=== PATIENT | female | born 1945 | race Caucasian/White ===

== ENCOUNTER → 2018-11-27 | Outpatient (CLI) | payer MEDICARE, OTHER ==
[~2018-11-27] MED LIST: ALBU8.5H2 IH; ATOR20TA66 PO; ATOR40TA PO; CHOL200018 PO; CRAN1CAP5 PO; DILT240C PO; FENO160T8 PO; HYDR25TA4 PO; LVT.1T PO; METF-380 PO; METO-451 PO; METO100T2 PO; METO25TA6 PO; PIOG30TA27 PO; VITA150T PO; [UNRECOGNIZED DRUG - CODE] PO
[2018-11-27 17:31] LABS: ABSOLUTE RETIC # 71 10e9/L (24-90); RED BLOOD COUNT 5.34 10^6/uL (4.35-5.85); RETICULOCYTE % 1.33 % (0.50-2.40)
[2018-11-27 17:49] LABS: ANISOCYTOSIS SLIGHT; BAND NEUTROPHILS 0 %; BASOPHILS % (MANUAL) 0 %; EOSINOPHILS % (MANUAL) 3 %; LYMPHOCYTES % (MANUAL) 16 %; MONOCYTES % (MANUAL) 11 %; NEUTROPHILS % (MANUAL) 70 %
== END ==
LOC: LABNPT 17:10
PROVIDERS: ATTEND Family Medicine
DX: D72.829 Elevated white blood cell count, unspecified (principal)
CPT/HCPCS: 85007; 85045

== ENCOUNTER → 2018-12-15 | Outpatient (CLI) | payer MEDICARE, OTHER ==
[2018-12-15 14:48] LABS: ABSOLUTE RETIC # 71 10e9/L (24-90); BASOPHILS # (AUTO) 0.1 10^3/uL (0.0-0.1); BASOPHILS % (AUTO) 0 % (0-10); EOSINOPHILS # (AUTO) 0.4 10^3/uL (0.0-0.3); EOSINOPHILS % (AUTO) 2 % (0-10); HEMATOCRIT 42 % (35-52); HEMOGLOBIN 13.1 G/DL (11.5-16.0); LYMPHOCYTES % (AUTO) 13 % (12-44); MEAN CORPUSCULAR HEMOGLOBIN 26 PG (25-34); MEAN CORPUSCULAR HGB CONC 31 G/DL (32-36); MEAN CORPUSCULAR VOLUME 82 FL (80-99); MEAN PLATELET VOLUME 9.7 FL (7.4-10.4); MONOCYTES # (AUTO) 1.2 X 10^3 (0.0-1.0); MONOCYTES % (AUTO) 8 % (0-12); NEUTROPHILS % (AUTO) 76 % (42-75); PLATELET COUNT 737 10^3/uL (130-400); RED CELL DISTRIBUTION WIDTH 18.3 % (10.0-14.5); RETICULOCYTE % 1.39 % (0.50-2.40); WHITE BLOOD COUNT 15.7 10^3/uL (4.3-11.0)
[2018-12-15 14:55] LABS: BAND NEUTROPHILS 2 %; LYMPHOCYTES % (MANUAL) 17 %; NEUTROPHILS % (MANUAL) 76 %
[2018-12-15 14:56] LABS: ANISOCYTOSIS SLIGHT; BASOPHILS % (MANUAL) 0 %; EOSINOPHILS % (MANUAL) 1 %; MONOCYTES % (MANUAL) 4 %
== END ==
LOC: LABNPT 14:37
PROVIDERS: ATTEND Internal Medicine Hematology & Oncology
DX: D72.829 Elevated white blood cell count, unspecified (principal)
CPT/HCPCS: 81206; 81270; 85007; 85027; 85045; 88184; 88185

== ENCOUNTER 2019-01-08 14:52 | Outpatient (RCR) | payer MEDICARE, OTHER | END 2019-03-10 | disposition home or self-care (01) | LOC: ONC 14:52 | PROVIDERS: ATTEND Internal Medicine Hematology & Oncology | DX: D72.829 Elevated white blood cell count, unspecified (principal) | CPT/HCPCS: 99213; 99214 ==

== ENCOUNTER 2019-01-28 08:43 | Outpatient (CLI) | payer MEDICARE, OTHER ==
[~2019-01-28] VITALS: Ht 162.6 cm; Wt 60.9 kg
[2019-01-28] VITALS (12 sets, daily range): BP systolic 113–157; BP diastolic 58–86
[2019-01-28 09:22] LABS: HEMOGLOBIN 12.3 G/DL (11.5-16.0); MEAN PLATELET VOLUME 9.1 FL (7.4-10.4); RED CELL DISTRIBUTION WIDTH 18.4 % (10.0-14.5); WHITE BLOOD COUNT 15.7 10^3/uL (4.3-11.0)
[2019-01-28] MEDS ORDERED: NS IV 1000 ML 1,000 ML IV STA (09:32)
[2019-01-28 09:34] LABS: PROTHROMBIN TIME PATIENT 12.6 SEC (12.2-14.7)
[2019-01-28] MEDS ORDERED: LIDOCAINE 1% INJ 20 ML 20 ML VIAL INJ ONE (09:45)
[2019-01-28] MEDS ORDERED: fentaNYL INJECTION 100 MCG/2 ML AMP IVP ONE (09:45)
[2019-01-28] MEDS ORDERED: MIDAZOLAM 2 MG/2 ML (VERSED) VIAL IVP ONE (09:45)
--- NOTE | 2019-01-28 10:52 | Pre-Op Note & Conscious Sedat ---
Pre-Operative Progress Note H&P Reviewed The H&P was reviewed, patient examined and no changes noted. Date H&P Reviewed: Jan 28, 2019 Time H&P Reviewed: 10:00 Pre-Op Diagnosis: Lung mass Conscious Sedation Pre-Proced Time 10:00 ASA Score 2 For ASA 3 and 4: Consider anesthesia and medical clearance. Also, for patients with a history of failed moderate sedation consider anesthesia. Airway Lungs Heart ASA score ASA 1: a normal healthy patient ASA 2: a patient with a mild systemic disease (mid diabetes, controlled hypertension, obesity ASA 3: a patient with a severe systemic disease that limits activity (angina , COPD, prior Myocardial infarction) ASA 4: a patient with an incapacitating disease that is a constant threat to life (CHF, renal failure) ASA 5: a moribund patient not expected to survive 24 hrs. (ruptured aneurysm) ASA 6: a declared brain- patient whose organs are being harvested. For emergent operations, add the letter E after the classification Mallampati Classification Grade 2 Sedation Plan Analgesia, Amnesia, Plan communicated to team members, Discussed options with patient/fam, Discussed risks with patient/fam The patient is an appropriate candidate to undergo the planned procedure, sedation, and anesthesia. The patient immediately re-assessed prior to indication. NILAM RAZA MD Jan 28, 2019 10:52
[2019-01-28] MEDS ORDERED: HYDROcodone/APAP 5 MG/325 MG (LORTAB) TAB PO PRN (11:00)
--- NOTE | 2019-01-28 11:46 | Diagnostic Imaging Report ---
INDICATION: Left lower lobe mass. TECHNIQUE: Patient was brought to the CT suite and placed on the table in the right side down decubitus position. The axial imaging through the chest and upper abdomen was performed to evaluate appropriate entry site. Procedure was performed utilizing conscious sedation with radiology nursing and constipation monitoring. Patient was administered a total of 50 mcg of fentanyl and 0.5 mg of Versed intravenously. Total procedure time was approximately six minutes. The right posterior lower chest was prepped and draped in usual sterile fashion. Small amount of 1% lidocaine was utilized for local anesthesia. An 18-gauge coaxial Temno needle was advanced into the large lobulated mass at the left base. A total of four core biopsies were obtained. Small blood patch was injected during needle removal. Hemostasis was obtained using manual compression. Followup imaging shows no complicating features. Patient tolerated the procedure well. IMPRESSION: Successful CT-guided core biopsy of the large mass at the left lung base/upper abdomen, utilizing conscious sedation. The patient tolerated the procedure well. Pathology results are currently pending. Dictated by: Dictated on workstation # [id number]
--- NOTE | 2019-01-28 12:53 | Diagnostic Imaging Report ---
Indication: Left basilar mass, status post biopsy Expiratory radiograph is without evidence of pneumothorax. Pleural fluid in the left base is noted. Right lung is clear. Impression: No evidence of pneumothorax, status post biopsy. Dictated by: Dictated on workstation # [id number]
== END 2019-01-28 15:10 | disposition home or self-care (01) ==
LOC: SDC 08:43
PROVIDERS: ATTEND Family Medicine
DX: J84.10 Pulmonary fibrosis, unspecified (principal); I47.1 Supraventricular tachycardia; E11.9 Type 2 diabetes mellitus without complications; I10 Essential (primary) hypertension; E78.5 Hyperlipidemia, unspecified; J45.909 Unspecified asthma, uncomplicated; E03.9 Hypothyroidism, unspecified; Z79.02 Long term (current) use of antithrombotics/antiplatelets; Z79.82 Long term (current) use of aspirin; Z79.899 Other long term (current) drug therapy; Z79.84 Long term (current) use of oral hypoglycemic drugs
CPT/HCPCS: 36415; 36430; 71045; 77012; 85027; 85610; 85730; 99156

== ENCOUNTER 2019-06-24 13:18 | Outpatient (RCR) | payer MEDICARE, OTHER ==
[2019-04-09 15:32] LABS: BASOPHILS # (AUTO) 0.1 10^3/uL (0.0-0.1); BASOPHILS % (AUTO) 1 % (0-10); EOSINOPHILS # (AUTO) 0.5 10^3/uL (0.0-0.3); EOSINOPHILS % (AUTO) 4 % (0-10); HEMATOCRIT 36 % (35-52); HEMOGLOBIN 11.5 G/DL (11.5-16.0); LYMPHOCYTES # (AUTO) 2.2 X 10^3 (1.0-4.0); LYMPHOCYTES % (AUTO) 16 % (12-44); MEAN CORPUSCULAR HEMOGLOBIN 24 PG (25-34); MEAN CORPUSCULAR HGB CONC 32 G/DL (32-36); MEAN CORPUSCULAR VOLUME 75 FL (80-99); MEAN PLATELET VOLUME 8.9 FL (7.4-10.4); MONOCYTES # (AUTO) 1.6 X 10^3 (0.0-1.0); MONOCYTES % (AUTO) 12 % (0-12); NEUTROPHILS # (AUTO) 9.4 X 10^3 (1.8-7.8); NEUTROPHILS % (AUTO) 68 % (42-75); PLATELET COUNT 799 10^3/uL (130-400); RED CELL DISTRIBUTION WIDTH 19.6 % (10.0-14.5); WHITE BLOOD COUNT 13.8 10^3/uL (4.3-11.0)
[2019-05-13 13:40] LABS: BASOPHILS % (AUTO) 0 % (0-10); EOSINOPHILS % (AUTO) 0 % (0-10); HEMATOCRIT 34 % (35-52); HEMOGLOBIN 10.6 G/DL (11.5-16.0); LYMPHOCYTES # (AUTO) 0.9 X 10^3 (1.0-4.0); LYMPHOCYTES % (AUTO) 3 % (12-44); MEAN CORPUSCULAR HEMOGLOBIN 24 PG (25-34); MEAN CORPUSCULAR HGB CONC 31 G/DL (32-36); MEAN CORPUSCULAR VOLUME 76 FL (80-99); MONOCYTES # (AUTO) 1.1 X 10^3 (0.0-1.0); MONOCYTES % (AUTO) 4 % (0-12); NEUTROPHILS # (AUTO) 24.7 X 10^3 (1.8-7.8); NEUTROPHILS % (AUTO) 92 % (42-75); PLATELET COUNT 836 10^3/uL (130-400); RED CELL DISTRIBUTION WIDTH 19.5 % (10.0-14.5); WHITE BLOOD COUNT 26.8 10^3/uL (4.3-11.0)
[2019-05-13 14:01] LABS: ALANINE AMINOTRANSFERASE 32 U/L (0-55); ALBUMIN 3.4 GM/DL (3.2-4.5); ALKALINE PHOSPHATASE 126 U/L (40-136); BILIRUBIN,TOTAL 0.2 MG/DL (0.1-1.0); BUN/CREATININE RATIO 20; CALCIUM 9.5 MG/DL (8.5-10.1); CARBON DIOXIDE 18 MMOL/L (21-32); CHLORIDE 97 MMOL/L (98-107); CREATININE SERUM 0.74 MG/DL (0.60-1.30); GFR ESTIMATED > 60; GLUCOSE 292 MG/DL (70-105); MAGNESIUM 1.2 MG/DL (1.8-2.4); POTASSIUM 4.4 MMOL/L (3.6-5.0); SODIUM 133 MMOL/L (135-145); TOTAL PROTEIN 7.2 GM/DL (6.4-8.2)
[~2019-06-24] VITALS: Ht 162.6 cm; Wt 57.6 kg
[~2019-06-24 13:18] MED LIST changes: +BEVACIZUMAB IV SCH; +CYANOCOBALAMIN INJ 1000 MCG/ML (CANCER CENTER) ONE; +FOSAPREPITANT DIMEGLUMINE 150 MG in NS (IVPB) CANCER CENTER ONLY 150 ML IV SCH; +NS IV 1000 ML (CANCER CTR) IV SCH; +PALONOSETRON HCL 0.25 MG, DEXAMETHASONE INJECTION 10 MG in NS (IVPB) CANCER CENTER 50 ML IV SCH; +PEMETREXED DISODIUM IV SCH; +[UNRECOGNIZED DRUG - OTHER] IV SCH; +[UNRECOGNIZED DRUG - OTHER] IV SCH
[2019-06-24] MEDS ORDERED: CYANOCOBALAMIN INJ 1000 MCG/ML (CANCER CENTER) ONE (14:58)
== END 2019-07-08 | disposition home or self-care (01) ==
LOC: ONC 13:18
PROVIDERS: ATTEND Internal Medicine Hematology & Oncology
DX: C45.1 Mesothelioma of peritoneum (principal); D72.829 Elevated white blood cell count, unspecified; D47.3 Essential (hemorrhagic) thrombocythemia; I25.10 Atherosclerotic heart disease of native coronary artery without angina pectoris; E11.9 Type 2 diabetes mellitus without complications; I10 Essential (primary) hypertension; E78.5 Hyperlipidemia, unspecified; J44.9 Chronic obstructive pulmonary disease, unspecified; F17.210 Nicotine dependence, cigarettes, uncomplicated; Z79.82 Long term (current) use of aspirin; Z79.899 Other long term (current) drug therapy; Z79.84 Long term (current) use of oral hypoglycemic drugs
CPT/HCPCS: 36415; 80053; 83735; 85025; 96367; 96372; 96375; 96411; 96413; 96417; 99213

== ENCOUNTER 2019-10-07 14:00 | Outpatient (RCR) | payer MEDICARE, OTHER ==
[~2019-10-07] VITALS: Ht 162.6 cm; Wt 57.2 kg
[~2019-10-07 14:00] MED LIST changes: +ONDANSETRON MDV (CANCER CENTER 8 MG, DEXAMETHASONE INJ (CANCER CTR) 4 MG in NS (IVPB) C... IV ONE; +ONDANSETRON MDV (CANCER CENTER 8 MG, DEXAMETHASONE INJECTION 10 MG in NS (IVPB) CANCER ... IV SCH; +diphenhydrAMINE 50 MG/ML INJ (CANCER CENTER) ONE; +methylPREDNISolone 125 MG/2 ML (SOLU-MEDROL) CANCER CTR ONE
[2019-10-07] MEDS ORDERED: NS IV 500 ML (CANCER CENTER) 500 ML ONE (15:38)
== END 2019-10-13 | disposition home or self-care (01) ==
LOC: ONC 14:00
PROVIDERS: ATTEND Internal Medicine Hematology & Oncology
DX: Z51.11 Encounter for antineoplastic chemotherapy (principal); C45.1 Mesothelioma of peritoneum; D72.829 Elevated white blood cell count, unspecified; D47.3 Essential (hemorrhagic) thrombocythemia; I25.10 Atherosclerotic heart disease of native coronary artery without angina pectoris; E11.9 Type 2 diabetes mellitus without complications; I10 Essential (primary) hypertension; E78.5 Hyperlipidemia, unspecified; J44.9 Chronic obstructive pulmonary disease, unspecified; F17.210 Nicotine dependence, cigarettes, uncomplicated; Z79.82 Long term (current) use of aspirin; Z79.899 Other long term (current) drug therapy; Z79.84 Long term (current) use of oral hypoglycemic drugs
CPT/HCPCS: 36591; 82728; 83540; 96367; 96372; 96375; 96411; 96413; 96417

== ENCOUNTER 2020-01-20 13:58 | Outpatient (RCR) | payer MEDICARE, OTHER ==
[~2020-01-20 13:58] MED LIST changes: -CYANOCOBALAMIN INJ 1000 MCG/ML (CANCER CENTER) ONE; -FOSAPREPITANT DIMEGLUMINE 150 MG in NS (IVPB) CANCER CENTER ONLY 150 ML IV SCH; +NS IV 500 ML (CANCER CENTER) 500 ML IV SCH; +NS IV 500 ML (CANCER CENTER) 500 ML ONE; +NS IV SCH; -ONDANSETRON MDV (CANCER CENTER 8 MG, DEXAMETHASONE INJ (CANCER CTR) 4 MG in NS (IVPB) C... IV ONE; -ONDANSETRON MDV (CANCER CENTER 8 MG, DEXAMETHASONE INJECTION 10 MG in NS (IVPB) CANCER ... IV SCH; -PALONOSETRON HCL 0.25 MG, DEXAMETHASONE INJECTION 10 MG in NS (IVPB) CANCER CENTER 50 ML IV SCH; +PALONOSETRON HCL 0.25 MG/5 ML IV SCH; +PALONOSETRON HCL IV SCH; +PEMBROLIZUMAB 200 MG in NS (IVPB) CANCER CENTER 50 ML IV SCH; -PEMETREXED DISODIUM IV SCH; -[UNRECOGNIZED DRUG - OTHER] IV SCH; -diphenhydrAMINE 50 MG/ML INJ (CANCER CENTER) ONE; -methylPREDNISolone 125 MG/2 ML (SOLU-MEDROL) CANCER CTR ONE
[2020-01-20 14:31] LABS: BASOPHILS # (AUTO) 0.1 10^3/uL (0.0-0.1); BASOPHILS % (AUTO) 1 % (0-10); EOSINOPHILS # (AUTO) 2.1 10^3/uL (0.0-0.3); EOSINOPHILS % (AUTO) 13 % (0-10); HEMATOCRIT 39 % (35-52); HEMOGLOBIN 11.9 G/DL (11.5-16.0); LYMPHOCYTES # (AUTO) 2.8 X 10^3 (1.0-4.0); LYMPHOCYTES % (AUTO) 17 % (12-44); MEAN CORPUSCULAR HEMOGLOBIN 27 PG (25-34); MEAN CORPUSCULAR HGB CONC 31 G/DL (32-36); MEAN CORPUSCULAR VOLUME 88 FL (80-99); MEAN PLATELET VOLUME 8.7 FL (7.4-10.4); MONOCYTES # (AUTO) 1.7 X 10^3 (0.0-1.0); MONOCYTES % (AUTO) 10 % (0-12); NEUTROPHILS # (AUTO) 9.9 X 10^3 (1.8-7.8); NEUTROPHILS % (AUTO) 60 % (42-75); PLATELET COUNT 563 10^3/uL (130-400); RED CELL DISTRIBUTION WIDTH 16.5 % (10.0-14.5); WHITE BLOOD COUNT 16.6 10^3/uL (4.3-11.0)
[2020-01-20 14:53] LABS: ALANINE AMINOTRANSFERASE 10 U/L (0-55); ALBUMIN 3.5 GM/DL (3.2-4.5); ALKALINE PHOSPHATASE 119 U/L (40-136); BILIRUBIN,TOTAL 0.2 MG/DL (0.1-1.0); BUN/CREATININE RATIO 16; CALCIUM 9.7 MG/DL (8.5-10.1); CARBON DIOXIDE 23 MMOL/L (21-32); CHLORIDE 102 MMOL/L (98-107); CREATININE SERUM 0.87 MG/DL (0.60-1.30); GFR ESTIMATED > 60; GLUCOSE 95 MG/DL (70-105); POTASSIUM 5.1 MMOL/L (3.6-5.0); SODIUM 135 MMOL/L (135-145); TOTAL PROTEIN 7.3 GM/DL (6.4-8.2)
== END 2020-01-26 | disposition home or self-care (01) ==
LOC: ONC 13:58
PROVIDERS: ATTEND Internal Medicine Hematology & Oncology
DX: Z51.11 Encounter for antineoplastic chemotherapy (principal); C45.1 Mesothelioma of peritoneum; D72.829 Elevated white blood cell count, unspecified; D47.3 Essential (hemorrhagic) thrombocythemia; I25.10 Atherosclerotic heart disease of native coronary artery without angina pectoris; E11.9 Type 2 diabetes mellitus without complications; I10 Essential (primary) hypertension; E78.5 Hyperlipidemia, unspecified; J44.9 Chronic obstructive pulmonary disease, unspecified; F17.210 Nicotine dependence, cigarettes, uncomplicated; Z79.82 Long term (current) use of aspirin; Z79.899 Other long term (current) drug therapy; Z79.84 Long term (current) use of oral hypoglycemic drugs
CPT/HCPCS: 36591; 80053; 85025; 96375; 96413; 99213

== ENCOUNTER 2020-02-10 13:12 | Outpatient (RCR) | payer MEDICARE, OTHER ==
[~2020-02-10 13:12] MED LIST changes: -BEVACIZUMAB IV SCH; -NS IV 1000 ML (CANCER CTR) IV SCH; -NS IV 500 ML (CANCER CENTER) 500 ML ONE; -NS IV SCH; -PALONOSETRON HCL 0.25 MG/5 ML IV SCH; -PALONOSETRON HCL IV SCH; -[UNRECOGNIZED DRUG - OTHER] IV SCH
== END 2020-03-02 09:17 | disposition home or self-care (01) ==
LOC: ONC 13:12
PROVIDERS: ATTEND Internal Medicine Hematology & Oncology
DX: Z51.11 Encounter for antineoplastic chemotherapy (principal); C45.1 Mesothelioma of peritoneum; D72.829 Elevated white blood cell count, unspecified; D47.3 Essential (hemorrhagic) thrombocythemia; I25.10 Atherosclerotic heart disease of native coronary artery without angina pectoris; E11.9 Type 2 diabetes mellitus without complications; I10 Essential (primary) hypertension; E78.5 Hyperlipidemia, unspecified; J44.9 Chronic obstructive pulmonary disease, unspecified; F17.210 Nicotine dependence, cigarettes, uncomplicated; I65.23 Occlusion and stenosis of bilateral carotid arteries; I47.1 Supraventricular tachycardia; E78.00 Pure hypercholesterolemia, unspecified; K29.70 Gastritis, unspecified, without bleeding; Z95.5 Presence of coronary angioplasty implant and graft; Z90.49 Acquired absence of other specified parts of digestive tract; Z79.84 Long term (current) use of oral hypoglycemic drugs; Z79.82 Long term (current) use of aspirin; Z79.899 Other long term (current) drug therapy
CPT/HCPCS: 96413

== ENCOUNTER 2020-03-22 13:05 | Outpatient (RCR) | payer MEDICARE, OTHER | END 2020-04-12 13:38 | disposition home or self-care (01) | LOC: ONC 13:05 | PROVIDERS: ATTEND Internal Medicine Hematology & Oncology | DX: Z51.11 Encounter for antineoplastic chemotherapy (principal); C45.1 Mesothelioma of peritoneum; D72.829 Elevated white blood cell count, unspecified; D47.3 Essential (hemorrhagic) thrombocythemia; I25.10 Atherosclerotic heart disease of native coronary artery without angina pectoris; E11.9 Type 2 diabetes mellitus without complications; I10 Essential (primary) hypertension; E78.5 Hyperlipidemia, unspecified; J44.9 Chronic obstructive pulmonary disease, unspecified; F17.210 Nicotine dependence, cigarettes, uncomplicated; I65.23 Occlusion and stenosis of bilateral carotid arteries; I47.1 Supraventricular tachycardia; E78.00 Pure hypercholesterolemia, unspecified; K29.70 Gastritis, unspecified, without bleeding; Z95.5 Presence of coronary angioplasty implant and graft; Z90.49 Acquired absence of other specified parts of digestive tract; Z79.84 Long term (current) use of oral hypoglycemic drugs; Z79.82 Long term (current) use of aspirin; Z79.899 Other long term (current) drug therapy | CPT/HCPCS: 96413; 99213 ==

== ENCOUNTER 2020-07-06 02:30 | Outpatient (RCR) | payer MEDICARE, OTHER | END 2020-07-12 | disposition home or self-care (01) | LOC: ONC 02:30 | PROVIDERS: ATTEND Internal Medicine Hematology & Oncology | DX: Z51.11 Encounter for antineoplastic chemotherapy (principal); C45.1 Mesothelioma of peritoneum; D72.829 Elevated white blood cell count, unspecified; D47.3 Essential (hemorrhagic) thrombocythemia; I25.10 Atherosclerotic heart disease of native coronary artery without angina pectoris; E11.9 Type 2 diabetes mellitus without complications; I10 Essential (primary) hypertension; E78.5 Hyperlipidemia, unspecified; J44.9 Chronic obstructive pulmonary disease, unspecified; F17.210 Nicotine dependence, cigarettes, uncomplicated; I65.23 Occlusion and stenosis of bilateral carotid arteries; I47.1 Supraventricular tachycardia; E78.00 Pure hypercholesterolemia, unspecified; K29.70 Gastritis, unspecified, without bleeding; Z95.5 Presence of coronary angioplasty implant and graft; Z90.49 Acquired absence of other specified parts of digestive tract; Z79.84 Long term (current) use of oral hypoglycemic drugs; Z79.82 Long term (current) use of aspirin; Z79.899 Other long term (current) drug therapy | CPT/HCPCS: 96413; G0463; 36591; 84443 ==

== ENCOUNTER 2020-10-06 14:26 | Outpatient (RCR) | payer MEDICARE, OTHER | END 2020-10-12 | disposition home or self-care (01) | LOC: ONC 14:26 | PROVIDERS: ATTEND Internal Medicine Hematology & Oncology | DX: Z51.11 Encounter for antineoplastic chemotherapy (principal); C45.1 Mesothelioma of peritoneum; D72.829 Elevated white blood cell count, unspecified; D47.3 Essential (hemorrhagic) thrombocythemia; I25.10 Atherosclerotic heart disease of native coronary artery without angina pectoris; E11.9 Type 2 diabetes mellitus without complications; I10 Essential (primary) hypertension; E78.5 Hyperlipidemia, unspecified; J44.9 Chronic obstructive pulmonary disease, unspecified; I65.23 Occlusion and stenosis of bilateral carotid arteries; I47.1 Supraventricular tachycardia; E78.00 Pure hypercholesterolemia, unspecified; K29.70 Gastritis, unspecified, without bleeding; F17.210 Nicotine dependence, cigarettes, uncomplicated; Z95.5 Presence of coronary angioplasty implant and graft; Z90.49 Acquired absence of other specified parts of digestive tract; Z79.84 Long term (current) use of oral hypoglycemic drugs; Z79.82 Long term (current) use of aspirin; Z79.899 Other long term (current) drug therapy | CPT/HCPCS: 96413; G0463 ==

== ENCOUNTER 2020-10-26 13:28 | Outpatient (RCR) | payer MEDICARE, OTHER | END 2020-11-29 14:05 | disposition home or self-care (01) | LOC: ONC 13:28 | PROVIDERS: ATTEND Internal Medicine Hematology & Oncology | DX: Z51.11 Encounter for antineoplastic chemotherapy (principal); C45.1 Mesothelioma of peritoneum; D72.829 Elevated white blood cell count, unspecified; D47.3 Essential (hemorrhagic) thrombocythemia; I25.10 Atherosclerotic heart disease of native coronary artery without angina pectoris; E11.9 Type 2 diabetes mellitus without complications; I10 Essential (primary) hypertension; E78.5 Hyperlipidemia, unspecified; J44.9 Chronic obstructive pulmonary disease, unspecified; I65.23 Occlusion and stenosis of bilateral carotid arteries; I47.1 Supraventricular tachycardia; E78.00 Pure hypercholesterolemia, unspecified; K29.70 Gastritis, unspecified, without bleeding; F17.210 Nicotine dependence, cigarettes, uncomplicated; Z95.5 Presence of coronary angioplasty implant and graft; Z90.49 Acquired absence of other specified parts of digestive tract; Z79.84 Long term (current) use of oral hypoglycemic drugs; Z79.82 Long term (current) use of aspirin; Z79.899 Other long term (current) drug therapy | CPT/HCPCS: 96413 ==

== ENCOUNTER → 2020-11-13 | Outpatient (CLI) | payer OTHER, MEDICARE ==
[~2020-11-13] MED LIST changes: -NS IV 500 ML (CANCER CENTER) 500 ML IV SCH; -PEMBROLIZUMAB 200 MG in NS (IVPB) CANCER CENTER 50 ML IV SCH
== END ==
LOC: LABNPT 21:45
PROVIDERS: ATTEND Nurse Practitioner Family
DX: Z20.828 Contact with and (suspected) exposure to other viral communicable diseases (principal)
CPT/HCPCS: 87635

== ENCOUNTER 2021-01-23 12:47 | Outpatient (RCR) | payer MEDICARE, OTHER ==
[2020-12-21 14:11] LABS: BASOPHILS # (AUTO) 0.1 10^3/uL (0.0-0.1); BASOPHILS % (AUTO) 0 % (0-10); EOSINOPHILS # (AUTO) 1.5 10^3/uL (0.0-0.3); EOSINOPHILS % (AUTO) 5 % (0-10); HEMATOCRIT 28 % (35-52); HEMOGLOBIN 8.4 g/dL (11.5-16.0); LYMPHOCYTES # (AUTO) 2.7 10^3/uL (1.0-4.0); LYMPHOCYTES % (AUTO) 9 % (12-44); MEAN CORPUSCULAR HEMOGLOBIN 23 pg (25-34); MEAN CORPUSCULAR HGB CONC 30 g/dL (32-36); MEAN CORPUSCULAR VOLUME 77 fL (80-99); MEAN PLATELET VOLUME 8.5 fL (9.0-12.2); MONOCYTES # (AUTO) 2.3 10^3/uL (0.0-1.0); MONOCYTES % (AUTO) 7 % (0-12); NEUTROPHILS # (AUTO) 24.7 10^3/uL (1.8-7.8); NEUTROPHILS % (AUTO) 78 % (42-75); PLATELET COUNT 943 10^3/uL (130-400)
[2020-12-21 14:15] LABS: WHITE BLOOD COUNT 31.6 10^3/uL (4.3-11.0)
[2020-12-21 14:32] LABS: ALANINE AMINOTRANSFERASE 12 U/L (0-55); ALBUMIN 2.7 GM/DL (3.2-4.5); ALKALINE PHOSPHATASE 181 U/L (40-136); BILIRUBIN,TOTAL 0.2 MG/DL (0.1-1.0); BUN/CREATININE RATIO 21; CALCIUM 8.7 MG/DL (8.5-10.1); CARBON DIOXIDE 24 MMOL/L (21-32); CHLORIDE 97 MMOL/L (98-107); CREATININE SERUM 0.62 MG/DL (0.60-1.30); GFR ESTIMATED > 60; GLUCOSE 161 MG/DL (70-105); POTASSIUM 4.3 MMOL/L (3.6-5.0); SODIUM 134 MMOL/L (135-145); TOTAL PROTEIN 6.7 GM/DL (6.4-8.2)
[2020-12-29 13:49] LABS: BASOPHILS # (AUTO) 0.1 10^3/uL (0.0-0.1); BASOPHILS % (AUTO) 0 % (0-10); EOSINOPHILS # (AUTO) 0.7 10^3/uL (0.0-0.3); EOSINOPHILS % (AUTO) 2 % (0-10); HEMATOCRIT 30 % (35-52); HEMOGLOBIN 8.8 g/dL (11.5-16.0); LYMPHOCYTES # (AUTO) 2.2 10^3/uL (1.0-4.0); LYMPHOCYTES % (AUTO) 7 % (12-44); MEAN CORPUSCULAR HEMOGLOBIN 22 pg (25-34); MEAN CORPUSCULAR HGB CONC 29 g/dL (32-36); MEAN CORPUSCULAR VOLUME 75 fL (80-99); MEAN PLATELET VOLUME 8.3 fL (9.0-12.2); MONOCYTES % (AUTO) 6 % (0-12); NEUTROPHILS # (AUTO) 26.4 10^3/uL (1.8-7.8); NEUTROPHILS % (AUTO) 83 % (42-75); PLATELET COUNT 900 10^3/uL (130-400)
[2020-12-29 13:52] LABS: WHITE BLOOD COUNT 31.7 10^3/uL (4.3-11.0)
[2020-12-29 14:10] LABS: ALANINE AMINOTRANSFERASE 20 U/L (0-55); ALBUMIN 2.6 GM/DL (3.2-4.5); ALKALINE PHOSPHATASE 232 U/L (40-136); BILIRUBIN,TOTAL 0.2 MG/DL (0.1-1.0); BUN/CREATININE RATIO 16; CALCIUM 8.8 MG/DL (8.5-10.1); CARBON DIOXIDE 24 MMOL/L (21-32); CHLORIDE 98 MMOL/L (98-107); CREATININE SERUM 0.62 MG/DL (0.60-1.30); GFR ESTIMATED > 60; GLUCOSE 146 MG/DL (70-105); POTASSIUM 4.2 MMOL/L (3.6-5.0); SODIUM 133 MMOL/L (135-145); TOTAL PROTEIN 6.5 GM/DL (6.4-8.2)
[~2021-01-23 12:47] MED LIST changes: +IPILIMUMAB IV SCH; +NIVOLUMAB IV SCH; +NS IV 1000 ML (CANCER CTR) 1,000 ML IV SCH; +NS IV 500 ML (CANCER CENTER) 500 ML IV SCH; +NS IV SCH; +PEMBROLIZUMAB 200 MG in NS (IVPB) CANCER CENTER 50 ML IV SCH
[2021-01-23 13:25] LABS: BASOPHILS # (AUTO) 0.1 10^3/uL (0.0-0.1); BASOPHILS % (AUTO) 0 % (0-10); EOSINOPHILS # (AUTO) 0.2 10^3/uL (0.0-0.3); EOSINOPHILS % (AUTO) 1 % (0-10); HEMATOCRIT 29 % (35-52); HEMOGLOBIN 8.3 g/dL (11.5-16.0); LYMPHOCYTES # (AUTO) 2.4 10^3/uL (1.0-4.0); LYMPHOCYTES % (AUTO) 8 % (12-44); MEAN CORPUSCULAR HEMOGLOBIN 22 pg (25-34); MEAN CORPUSCULAR HGB CONC 29 g/dL (32-36); MEAN CORPUSCULAR VOLUME 76 fL (80-99); MEAN PLATELET VOLUME 8.8 fL (9.0-12.2); MONOCYTES # (AUTO) 1.8 10^3/uL (0.0-1.0); MONOCYTES % (AUTO) 6 % (0-12); NEUTROPHILS # (AUTO) 24.4 10^3/uL (1.8-7.8); NEUTROPHILS % (AUTO) 84 % (42-75); PLATELET COUNT 886 10^3/uL (130-400); WHITE BLOOD COUNT 29.2 10^3/uL (4.3-11.0)
[2021-01-23 13:50] LABS: ALANINE AMINOTRANSFERASE 14 U/L (0-55); ALBUMIN 2.3 GM/DL (3.2-4.5); ALKALINE PHOSPHATASE 218 U/L (40-136); BILIRUBIN,TOTAL 0.2 MG/DL (0.1-1.0); BUN/CREATININE RATIO 18; CALCIUM 7.7 MG/DL (8.5-10.1); CARBON DIOXIDE 28 MMOL/L (21-32); CHLORIDE 98 MMOL/L (98-107); CREATININE SERUM 0.74 MG/DL (0.60-1.30); GFR ESTIMATED > 60; GLUCOSE 197 MG/DL (70-105); POTASSIUM 3.4 MMOL/L (3.6-5.0); SODIUM 136 MMOL/L (135-145); TOTAL PROTEIN 5.9 GM/DL (6.4-8.2)
== END 2021-01-27 09:25 | disposition home or self-care (01) ==
LOC: ONC 12:47
PROVIDERS: ATTEND Internal Medicine Hematology & Oncology
DX: Z51.11 Encounter for antineoplastic chemotherapy (principal); C45.0 Mesothelioma of pleura; D72.829 Elevated white blood cell count, unspecified; D47.3 Essential (hemorrhagic) thrombocythemia; I25.10 Atherosclerotic heart disease of native coronary artery without angina pectoris; E11.9 Type 2 diabetes mellitus without complications; I10 Essential (primary) hypertension; E78.5 Hyperlipidemia, unspecified; J44.9 Chronic obstructive pulmonary disease, unspecified; I65.23 Occlusion and stenosis of bilateral carotid arteries; I47.1 Supraventricular tachycardia; E78.00 Pure hypercholesterolemia, unspecified; E03.9 Hypothyroidism, unspecified; K29.70 Gastritis, unspecified, without bleeding; F17.210 Nicotine dependence, cigarettes, uncomplicated; Z95.5 Presence of coronary angioplasty implant and graft; Z90.49 Acquired absence of other specified parts of digestive tract; Z79.84 Long term (current) use of oral hypoglycemic drugs; Z79.82 Long term (current) use of aspirin; Z79.899 Other long term (current) drug therapy
CPT/HCPCS: 36591; 80053; 82728; 83540; 84443; 85025; 96413; 96417; 99213

== ENCOUNTER 2021-01-27 09:56 | Outpatient (RCR) | payer MEDICARE, OTHER ==
[~2021-01-27 09:56] MED LIST changes: -IPILIMUMAB IV SCH; -NIVOLUMAB IV SCH; -NS IV 1000 ML (CANCER CTR) 1,000 ML IV SCH; -NS IV 500 ML (CANCER CENTER) 500 ML IV SCH; -NS IV SCH; -PEMBROLIZUMAB 200 MG in NS (IVPB) CANCER CENTER 50 ML IV SCH
[2021-01-27] MEDS ORDERED: FERRIC CARBOXYMALTOSE (CANCER) 750 MG in NS (IVPB) CANCER CENTER 250 ML IV SCH (11:15)
[2021-02-07] MEDS ORDERED: METO50TA7 PO (16:00)
[2021-02-07] MEDS ORDERED: DILT240C53 PO (16:00)
[2021-02-07] MEDS ORDERED: CLOP75TA28 PO (16:00)
[2021-02-07] MEDS ORDERED: VITA1CAP PO (16:00)
[2021-02-07] MEDS ORDERED: METF-397 PO (16:00)
[2021-02-07] MEDS ORDERED: ATOR20TA66 PO (16:00)
[2021-02-07] MEDS ORDERED: MONT10TA32 PO (16:00)
[2021-02-07] MEDS ORDERED: ALPR0.5T7 PO (16:00)
[2021-02-07] MEDS ORDERED: CRAN400C PO (16:00)
[2021-02-07] MEDS ORDERED: POTA10TA PO (16:00)
[2021-02-07] MEDS ORDERED: LEVO100T7 PO (16:00)
[2021-02-07] MEDS ORDERED: FURO40TA4 PO (16:00)
[2021-02-07] MEDS ORDERED: FAMO20TA5 PO (16:00)
[2021-02-07] MEDS ORDERED: RT-ALBUINH IH (16:01)
== END 2021-02-07 | disposition home or self-care (01) ==
LOC: ONC 09:56
PROVIDERS: ATTEND Internal Medicine Hematology & Oncology
DX: Z51.11 Encounter for antineoplastic chemotherapy (principal); C45.0 Mesothelioma of pleura; D72.829 Elevated white blood cell count, unspecified; D47.3 Essential (hemorrhagic) thrombocythemia; I25.10 Atherosclerotic heart disease of native coronary artery without angina pectoris; E11.9 Type 2 diabetes mellitus without complications; I10 Essential (primary) hypertension; E78.5 Hyperlipidemia, unspecified; J44.9 Chronic obstructive pulmonary disease, unspecified; I65.23 Occlusion and stenosis of bilateral carotid arteries; I47.1 Supraventricular tachycardia; E78.00 Pure hypercholesterolemia, unspecified; E03.9 Hypothyroidism, unspecified; K29.70 Gastritis, unspecified, without bleeding; D50.9 Iron deficiency anemia, unspecified; E87.8 Other disorders of electrolyte and fluid balance, not elsewhere classified; F17.210 Nicotine dependence, cigarettes, uncomplicated; Z95.5 Presence of coronary angioplasty implant and graft; Z90.49 Acquired absence of other specified parts of digestive tract; Z79.84 Long term (current) use of oral hypoglycemic drugs; Z79.82 Long term (current) use of aspirin; Z79.899 Other long term (current) drug therapy
CPT/HCPCS: 96365; G0463